=== PATIENT | male | born 1970 | race Caucasian/White ===

== ENCOUNTER 2016-11-25 08:59 | Emergency (ER) | payer MEDICAID ==
[~2016-11-25] VITALS: Ht 170.2 cm; Wt 84.0 kg
[2016-11-25] MEDS ORDERED: ONDANSETRON ODT 4 MG PO ONE (09:30)
[2016-11-25] MEDS ORDERED: ONDANSETRON ODT 4 MG ONE (09:33)
[2016-11-25 09:46] LABS: HEMOGLOBIN 16.4 g/dL (13.7-18.0)
[2016-11-25 09:56] LABS: BLOOD UREA NITROGEN 18 mg/dL (7-18)
[2016-11-25 10:02] LABS: IS PT STATUS REG ER OR PRE ER? YES
[2016-11-25 10:21] LABS: DIFF TOTAL CELLS COUNTED 100 CELL DIFF
[2016-11-25 10:30] LABS: VERIFY COUNTS? YES
[2016-11-25] MEDS ORDERED: ACETAMINOPHEN 325 MG TABLET ONE (10:54)
[2016-11-25] MEDS ORDERED: ACETAMINOPHEN 325 MG TABLET PO ONE (11:00)
[2016-11-25 12:10] VITALS: BP 119/71
== END 2016-11-25 13:07 | disposition home or self-care (01) ==
LOC: ED 10:21
DX: R42 Dizziness and giddiness (principal); I10 Essential (primary) hypertension; D72.829 Elevated white blood cell count, unspecified; F17.200 Nicotine dependence, unspecified, uncomplicated
CPT/HCPCS: 36415; 70450; 71010; 80048; 82040; 84484; 85025; 93005; 99285; Q0162